=== PATIENT | male | born 1995 | race African-American/Black ===

== ENCOUNTER 2021-01-22 22:14 | Emergency (ER) | payer OTHER, SELFPAY ==
[2021-01-22 22:40] VITALS: BP 146/86; PULSE 65; RESP 18; TEMP 37.1; O2SAT 100; BMI 28.3
--- NOTE | 2021-01-22 23:03 | ED_ITS ---
HPI - Dental/Oral General Chief complaint: Dental/Oral Stated complaint: tooth pain Time Seen by Provider: 01/22/21 23:02 Source: patient Mode of arrival: ambulatory Limitations: no limitations History of Present Illness HPI Narrative: 25-year-old male came in for evaluation of tooth ache. Patient was seen by his dentist today had a filling of his left 1st molar tooth today, patient been having pain and swelling around the tooth, patient was not started on antibiotic or pain medication. Related Data Previous Rx's Medication Instructions Recorded amoxicillin 500 mg tablet 500 mg PO BID #14 tab 01/22/21 oxycodone-acetaminophen 5 mg-325 1 tab PO Q8H PRN #6 tab 01/22/21 mg tablet (Percocet) Allergies Allergy/AdvReac Type Severity Reaction Status Date / Time No Known Allergies Allergy Verified 01/22/21 22:46 Review of Systems Review of Systems: All other systems are reviewed and are negative Constitutional: Reports as per HPI and Reports no additional constitutional complaints Eyes: Reports as per HPI and Reports no additional eye complaints Reports system reviewed and no additional complaints, except as documented Cardiovascular: Reports as per HPI and Reports no additional cardiovascular complaints Respiratory: Reports as per HPI and Reports no additional respiratory complaints Gastrointestinal: Reports as per HPI and Reports no additional gastrointestinal complaints Genitourinary: Reports no additional female genitourinary complaints Musculoskeletal: Reports no additional musculoskeletal complaints Skin/Breast: Reports system reviewed and no additional complaints, except as docu Psychiatric: Reports no additional psychiatric complaints Endocrine: Reports no additional endocrine complaints Hematologic/Lymphatic: Reports no additional hematologic/lymphatic complaints Allergic/Immunologic: Reports no additional allergic/immunologic complaints Reports system reviewed and no additional complaints, except as documented and Reports Abnormal speech present Physical Exam Vital Signs: Vital Signs: Last Vital Signs Temp 98.7 F 01/22/21 22:40 Pulse 65 01/22/21 22:40 Resp 18 01/22/21 22:40 BP 146/86 H 01/22/21 22:40 Pulse Ox 100 01/22/21 22:40 Body Mass Index 28.3 Vital signs have been reviewed as appeared to be correct. Blood pressure normal. Heart rate normal. Respiration rate normal. Temperature normal. Oxygen saturation normal. Appearance: Alert. Oriented X3. No acute distress. Head: Normal external exam. Normocephalic. Atraumatic. No Holly signs noted. No raccoon eyes noted. Mouth and dental exam: Tenderness over the 1st lower molar tooth, no decay, no fluctuation or swelling around the tooth. Eyes: PERRLA. EOMI. Conjunctiva and sclera normal. Eyelids normal. ENT: TM's Normal. Pharynx normal. Uvula midline. Moist mucous membranes. No trismus noted. No drooling noted. No muffled voice noted. Neck: Normal inspection. Neck supple. FROM. No adenopathy. Thyroid Normal. No meningeal signs. No neck mass noted. CVS: Normal heart rate and rhythm. Heart sound normal. No murmurs noted. Pulses normal throughout. Respiratory: No respiratory distress. Painless inspiration. Breath sounds normal. No wheezes/rales/rhonchi noted. Chest nontender. No accessory muscle usage noted or decreased air movement noted. Abdomen: Soft and nontender. Bowel sounds normal in all 4 quadrants. No distention noted. No organomegaly noted. No visible injury noted. Back: No CVA tenderness. Full range of motion noted. Skin: Skin warm and dry. Normal skin color. Normal skin turgor. No rashes/ lesions/lacerations noted. Extremities: No lower extremity edema. Extremities exhibit normal range of motion. Extremities nontender. Neuro: Oriented X 3. Cranial nerve exam: II-XII are grossly intact No motor deficit. No sensory deficit. Reflexes normal. Course Course Course Narrative: Assessment and plan. 25-year-old male has a dental work today presented with pain, will start the patient on amoxicillin and pain medication. Discharge Plan Discharge Clinical Impression: Toothache Patient Disposition: Home, Self-Care Instructions: Toothache (ED) Prescriptions: New amoxicillin 500 mg tablet 500 mg PO BID Qty: 14 RF: 0 oxycodone-acetaminophen [Percocet] 5-325 mg tablet 1 tab PO Q8H PRN (Reason: pain) Qty: 6 RF: 0 Referrals: Physician,Unknown J [Primary Care Provider] - 2 days
[2021-01-22] MEDS: Amoxicillin 500 MG CAPSULE PO (23:26)
[2021-01-22] MEDS: Ibuprofen 600 MG TABLET PO (23:26)
== END 2021-01-22 23:40 | disposition home or self-care (01) ==
LOC: HO.ED 23:19
PROVIDERS: Emergency Provider Emergency Medicine
DX: K08.89 Other specified disorders of teeth and supporting structures (principal)
CPT/HCPCS: 99283; 99284

== ENCOUNTER 2021-01-24 17:37 | Emergency (ER) | payer OTHER, SELFPAY ==
--- NOTE | ~2021-01-24 | CT_ITS ---
EXAMINATION: CT SOFT TISSUE NECK WITH CONTRAST CLINICAL INFORMATION: Left submandibular jaw swelling. Question abdominal abscess. COMPARISON: None TECHNIQUE: Following the intravenous administration of 60 mL of Omnipaque 350 intravenous contrast, helical imaging was performed in the axial plane with generation of coronal and sagittal reformatted images. This CT examination was performed using dose optimization techniques as appropriate, variously including the following: *Automated exposure control *Adjustment of mA and/or kV according to patient size (this includes techniques or standardized protocols for targeted exams where dose is matched to indication/reason for exam; i.e. extremities or head) *Use of iterative reconstruction technique DLP: 694 mGy-cm FINDINGS: Prominent left upper cervical lymph nodes are presumably reactive. Laryngeal structures are normal. Parapharyngeal fat is maintained. Normal contrast opacification of the vasculature bilaterally. There is periapical lucency of tooth 13 with erosion through the buccal cortex of the left mandibular alveolar process with an adjacent 6 mm enhancing phlegmon. Also seen is periapical lucency adjacent to tooth 14. Bilateral ethmoid and maxillary sinus mucosal thickening. Globes and orbits are normal. There is asymmetric fat stranding of the subcutaneous fat in the left neck and submandibular region. Inferiorly this extends to the right of midline. The appearance suggests cellulitis. Thyroid gland is normal. Lung apices are normal. CT/CT soft tissue neck w con IMPRESSION: Periapical lucency of tooth 13 erosions through the buccal cortex of the left mandibular alveolar process with an adjacent 6 mm enhancing phlegmon. See resendez images. There is additional periapical lucency involving tooth 14. There is asymmetric fat stranding of the subcutaneous fat in the left neck and submandibular region, extending to the right of midline inferiorly, consistent with cellulitis. Maxillary and ethmoid sinus disease.
[2021-01-24 17:53] VITALS: BP 135/73; PULSE 70; RESP 18; TEMP 37.1; O2SAT 95; BMI 28.2
--- NOTE | 2021-01-24 18:21 | ED_ITS ---
HPI - General Adult General Chief complaint: Dental/Oral Stated complaint: Facial bump Time Seen by Provider: 01/24/21 17:59 Source: patient Mode of arrival: ambulatory Limitations: no limitations History of Present Illness HPI narrative: Patient presents to ED left lower jaw swelling started this morning. Patient was seen here for lower molar dental pain and was prescribed antibiotics. Patient only took 2 doses of antibiotics and this morning woke up with swelling of left lower jaw. Patient denies any drooling, chest pain, shortness of breath. Patient feels like slight left neck swelling with jaw swelling. Patient last seen dentist last month Related Data Previous Rx's Medication Instructions Recorded amoxicillin 500 mg tablet 500 mg PO BID #14 tab 01/22/21 oxycodone-acetaminophen 5 mg-325 1 tab PO Q8H PRN #6 tab 01/22/21 mg tablet (Percocet) doxycycline hyclate 100 mg tablet 100 mg PO BID 7 Days #14 tab 01/24/21 ketorolac 10 mg tablet 10 mg PO QID PRN 5 Days #20 tab 01/24/21 Allergies Allergy/AdvReac Type Severity Reaction Status Date / Time No Known Allergies Allergy Verified 01/24/21 17:53 Review of Systems Review of Systems: Yes all other systems are reviewed and are negative Constitutional: Constitutional: Reports as per HPI and Reports no additional constitutional complaints Eyes: Eyes: Reports as per HPI and Reports no additional eye complaints ENT: Reports system reviewed and no additional complaints, except as documented and Reports as per HPI Comments: Left-sided dental pain left lower jaw swelling. Cardiovascular: Cardiovascular: Reports as per HPI and Reports no additional cardiovascular complaints Respiratory: Respiratory: Reports as per HPI and Reports no additional respiratory complaints Gastrointestinal: Gastrointestinal: Reports as per HPI and Reports no additional gastrointestinal complaints Genitourinary: Genitourinary: Reports no additional male genitourinary complaints and Reports as per HPI Musculoskeletal: Musculoskeletal: Reports no additional musculoskeletal complaints and Reports as per HPI Neurologic: Reports system reviewed and no additional complaints, except as documented and Reports as per HPI Psychiatric: Psychiatric: Reports no additional psychiatric complaints and Reports as per HPI [facility] Social History Social History Advance Directives: No Advance Directives Information Provided: No Physical Exam Vital Signs: Vital Signs: Last Vital Signs Temp 98.7 F 01/24/21 17:53 Pulse 70 01/24/21 17:53 Resp 18 01/24/21 17:53 BP 135/73 01/24/21 17:53 Pulse Ox 95 01/24/21 17:53 Body Mass Index 28.2 Const: General: cooperative, healthy appearing, comfortable, no acute distress, well developed, alert, awake and Physically active Orientation/consciousness: patient oriented x3 HENMT: Head: Yes normal to inspection, Yes No palpable skull fracture present, Yes normocephalic, Yes atraumatic and No abrasion Head images: 1. Swelling and tenderness on palpation. Negative for palpable mass or fluctuance. Oral exam negative for obvious gum abscess or swelling or erythema. Positive for slight gum tenderness near painful tooth but negative for obvious gum masses to drain. Patient states left-sided neck feels swollen although there is no obvious swelling Eyes: General: appearance normal, both eyes and all related structures Neck: Neck: Yes normal visual inspection, Yes full ROM, Yes no lymphadenopathy, Yes no meningeal signs, Yes trachea midline, Yes supple, No anterior neck swelling and No tender Chest: Chest palpation & inspection: normal inspection of the chest and normal palpation of entire chest wall Resp: Effort & Inspection: normal respiratory effort and able to speak in complete sentences Auscultation: clear to auscultation bilaterally Cardio: Jugular venous distension: no JVD Heart sounds: S1 normal heart sound present and S2 normal heart sound present GI: Inspection: Yes normal to inspection and No abdominal wall ecchymosis Palpation (GI): Soft to palpation, not firm, nontender, no guarding and not rigid : General: No CVA tenderness and Yes no CVA tenderness Back/Spine/Pelvis: Back: no CVA tenderness, No CVA tenderness and No back tenderness Skin: General skin exam: no rashes or lesions noted and elasticity normal Neuro: General: patient oriented x3, gait normal, no meningeal signs and CN's II-XI intact bilaterally Cranial nerves: Yes CN's II-XII intact bilaterally Extrem: General: Yes normal to inspection and Yes full ROM Psych: Appearance: grossly normal, well kempt and not disheveled Course Course Course Narrative: No signs of obvious gum abscess but positive for left some mandibular swelling. Patient thinks his neck is swollen also will do CT scan to make sure there is no retropharyngeal lead with abscess to confirm that there is any drainable gum abscess although not obvious on inspection due to come not being swollen fluctuance or red. Reevaluation(s) Reevaluation #1: Labs are at baseline. Patient given clindamycin IV. Patient's CT scan negative for retropharyngeal abscess. Patient's CT scan shows facial/neck cellulitis. Negative for any dental abscess in lower molars lower molars. Tooth 13 and 14 May have some small collection under the tooth root and tooth will be need to be extracted. Patient explained all this and given copy of report of CT scans to give the dentist. Patient informed to continue taking amoxicillin. Patient educated warm compress on face will be charged with Toradol and said. Time: 23:26 Medical Decision Making MDM Narrative Medical decision making narrative: facial cellulitis Lab Data Result diagrams: 01/24/21 18:45 01/24/21 19:26 Labs: Lab Results 01/24/21 01/24/21 01/24/21 Range/Units 18:45 18:45 19:26 WBC 7.6 (4.8-10.8) X10*3/uL RBC 4.45 L (4.60-5.80) X10*6/uL Hgb 13.9 L (14.0-18.0) g/dl Hct 40.8 L (42.0-52.0) % MCV 91.7 (80.0-98.0) fL MCH 31.2 (27.0-33.0) pg MCHC 34.1 (31.0-36.0) g/dl RDW 13.2 (11.0-16.0) % Plt Count 208 (160-400) X10*3/uL MPV 10.6 (9.4-12.4) fL Immature Gran % (Auto) 0.3 (0.0-0.4) % Neut % (Auto) 57.4 (45-73) % Lymph % (Auto) 29.8 (20-40) % Ferry % (Auto) 10.7 (2-11) % Eos % (Auto) 1.5 (0-4) % Baso % (Auto) 0.3 (0-2) % Lymph # (Auto) 2.3 (1.2-4.9) X10*3/uL Ferry # (Auto) 0.8 (0.1-1.2) X10*3/uL Eos # (Auto) 0.1 (0.0-0.4) X10*3/uL Baso # (Auto) 0.0 (0.0-0.2) X10*3/uL Abs Immat Gran (auto) 0.02 (0.00-0.03) X10*3/uL Absolute Neuts (auto) 4.4 (2.0-8.3) x10*3/uL Absolute Nucleated RBC 0.000 (0.0-0.012) X10*3/uL Nucleated RBC % (auto) 0.0 (0.0-0.2) /100WBC Sodium 139 (135-145) mmol/L Potassium 3.7 (3.3-5.1) mmol/L Chloride 103 (96-108) mmol/L Carbon Dioxide 29 (22-29) mmol/L Anion Gap 11 L (12-20) BUN 9 (9-16) mg/dL Creatinine 0.82 (0.5-1.4) mg/dL Estim Creat Clear Calc 162.7 Estimated GFR > 60 Random Glucose 95 (60-115) mg/dL Lactic Acid 0.7 (0.5-2.0) mmol/L Calcium 9.1 (8.4-10.2) mg/dL Total Bilirubin 0.3 (0.0-1.0) mg/dL AST 45 H (5-37) U/L ALT 88 H (0-40) U/L Alkaline Phosphatase 97 (39-117) U/L Total Protein 7.1 (6.5-8.0) g/dL Albumin 4.4 (3.5-5.0) g/dL Discharge Plan Discharge Clinical Impression: Cellulitis of face, Dental abscess Patient Disposition: Home, Self-Care Instructions: Dental Abscess (ED), Cellulitis (ED) Additional Instructions: CT scan shows facial/neck cellulitis with superficial skin infection. CT scan also show upper molars 13 and 14 have erosions with small collection in root canal, but not drainable presently in this moment. Tooth 13 and 14 will need to be extracted by dentist. You will need to complete course of antibiotic. Recommend warm compress on left side of face 4 times a day for 15 minutes to help with swelling. Return to the ED immediately for neck swelling, weakness, dizziness, change in voice, drooling, shortness of breath, chest pain, extreme dental/facial pain, or any other concerning symptoms. Please follow up with PCP and dentitist. Prescriptions: New doxycycline hyclate 100 mg tablet 100 mg PO BID 7 Days Qty: 14 RF: 0 ketorolac 10 mg tablet 10 mg PO QID PRN (Reason: pain) 5 Days Qty: 20 RF: 0 No Action amoxicillin 500 mg tablet 500 mg PO BID Qty: 14 RF: 0 oxycodone-acetaminophen [Percocet] 5-325 mg tablet 1 tab PO Q8H PRN (Reason: pain) Qty: 6 RF: 0 Stand Alone Forms: Work/School Release Interventions: ED Discharge Assessment Last Done: 01/25/21 00:21 Discharge Date/Time: 01/24/21 23:37 Print Language: Malian
[2021-01-24 18:50] LABS: MANUAL DIFF FLAG NO
[2021-01-24 18:52] LABS: Basophils Percent Auto 0.3 % (0-2); Eosinophils Absolute Auto 0.1 X10*3/uL (0.0-0.4); Eosinophils Percent Auto 1.5 % (0-4); Hematocrit 40.8 % (42.0-52.0); Hemoglobin 13.9 g/dl (14.0-18.0); Imm Gran Abs Auto 0.02 X10*3/uL (0.00-0.03); Imm Gran Pct Auto 0.3 % (0.0-0.4); Lymphocytes Absolute Auto 2.3 X10*3/uL (1.2-4.9); Lymphocytes Percent Auto 29.8 % (20-40); Mean Corpuscular HGB Conc 34.1 g/dl (31.0-36.0); Mean Corpuscular Hemoglobin 31.2 pg (27.0-33.0); Mean Corpuscular Volume 91.7 fL (80.0-98.0); Mean Platelet Volume 10.6 fL (9.4-12.4); Monocytes Absolute Auto 0.8 X10*3/uL (0.1-1.2); Monocytes Percent Auto 10.7 % (2-11); Neutrophils Absolute Auto 4.4 x10*3/uL (2.0-8.3); Neutrophils Percent Auto 57.4 % (45-73); Platelet Count 208 X10*3/uL (160-400); Red Blood Count 4.45 X10*6/uL (4.60-5.80); Red Cell Distribution Width 13.2 % (11.0-16.0); White Blood Count 7.6 X10*3/uL (4.8-10.8)
[2021-01-24 19:04] LABS: Lactic Acid 0.7 mmol/L (0.5-2.0)
[2021-01-24 19:55] LABS: Alanine Aminotransferase 88 U/L (0-40); Albumin Level 4.4 g/dL (3.5-5.0); Alkaline Phosphatase 97 U/L (39-117); Anion Gap 11 (12-20); Aspartate Amino Transferase 45 U/L (5-37); Bilirubin Total 0.3 mg/dL (0.0-1.0); Blood Urea Nitrogen 9 mg/dL (9-16); Calcium 9.1 mg/dL (8.4-10.2); Carbon Dioxide 29 mmol/L (22-29); Chloride 103 mmol/L (96-108); Creatinine Clr Calc Pharmacy 162.7; Estimated Glomerular Filt Rate > 60; Glucose Random 95 mg/dL (60-115); Potassium 3.7 mmol/L (3.3-5.1); Sodium 139 mmol/L (135-145); Total Protein 7.1 g/dL (6.5-8.0)
[2021-01-24] MEDS: Clindamycin Phosphate/D5W 600 MG/50 ML PIGGYBACK 100 MG IV (20:11)
[2021-01-24] MEDS: 0.9 % Sodium Chloride 1,000 ML 999 ML IV (20:11)
[2021-01-24] MEDS: Ketorolac Tromethamine 15 MG/ML VIAL 30 MG IVPUSH (20:11)
[2021-01-24] MEDS: iohexoL 350 MG/ML 100 ML INFUS..BTL IV (21:22)
== END 2021-01-24 23:37 | disposition home or self-care (01) ==
PROVIDERS: Physician Assistant; Emergency Provider Internal Medicine
DX: L03.211 Cellulitis of face (principal); K04.7 Periapical abscess without sinus; K08.89 Other specified disorders of teeth and supporting structures
CPT/HCPCS: 36415; 70491; 80053; 83605; 85025; 87040; 96361; 96374; 96375; 99284; J1885; Q9967

== ENCOUNTER 2021-08-15 07:28 | Emergency (ER) | payer OTHER, SELFPAY ==
--- NOTE | ~2021-08-15 | XR_ITS ---
EXAMINATION: XR FOOT, LEFT CLINICAL INFORMATION: Evaluate for osteoarthritis between the 4th and 5th toes. COMPARISON: None TECHNIQUE: AP, lateral, and oblique views of the left foot. FINDINGS: No acute fracture or dislocation. No osseous erosion or periosteal reaction. No radiopaque foreign body. No joint space narrowing or marginal osteophytes. No abnormal soft tissue calcification. XR/XR foot LT min 3V IMPRESSION: No acute osseous abnormality.
[2021-08-15 07:37] VITALS: BP 129/75; PULSE 64; RESP 17; TEMP 36.8; O2SAT 98
[2021-08-15 08:33] VITALS: BMI 25.0
--- NOTE | 2021-08-15 08:37 | ED_ITS ---
HPI - General Adult General Chief complaint: Skin/Abscess/Foreign Body Stated complaint: pain l foot Time Seen by Provider: 08/15/21 08:37 Source: patient Mode of arrival: ambulatory Limitations: no limitations History of Present Illness HPI narrative: Patient is a 26 year old male presenting to the emergency department today with a wound in between his left 5th and 4th toes. Patient states that for a little while now he has been fighting a fungal infection in between his left 4th and 5th toes with OTC cream. Patient states that now the rest of his foot is painful and swollen. Patient denies any dizziness, lightheadedness, abdominal pain, nausea, vomiting, fever, chills, blurry vision, double vision, loss of vision, chest pain, difficulty breathing, shortness of breath, back pain, night sweats, pain with urination, increased urinary frequency, increased urinary urgency, blood in his urine or stool, syncope or a near syncopal episode, recent trauma or falls, bowel incontinence, bladder incontinence, bowel retention, bladder retention, or any other complaints at this time. Onset (ago): day(s) Location: lower extremity Radiation: non-radiation Severity: mild Severity scale (1-10): 3 Quality: dull Pain Consistency: constant Relieving factors: none Exacerbating factors: none Associated symptoms: denies other symptoms Treatments prior to arrival: none Related Data Previous Rx's Medication Instructions Recorded amoxicillin 500 mg tablet 500 mg PO BID #14 tab 01/22/21 oxycodone-acetaminophen 5 mg-325 1 tab PO Q8H PRN #6 tab 01/22/21 mg tablet (Percocet) doxycycline hyclate 100 mg tablet 100 mg PO BID 7 Days #14 tab 01/24/21 ketorolac 10 mg tablet 10 mg PO QID PRN 5 Days #20 tab 01/24/21 cephalexin 500 mg capsule 500 mg PO Q6H 7 Days #28 cap 08/15/21 fluconazole 150 mg tablet 150 mg PO Q3D #2 tab 08/15/21 (Diflucan) Allergies Allergy/AdvReac Type Severity Reaction Status Date / Time No Known Allergies Allergy Verified 01/24/21 17:53 Review of Systems Constitutional: Constitutional: Reports no additional constitutional complaints, Denies chills, Denies fever(s) and Denies night sweats Eyes: Eyes: Reports no additional eye complaints, Denies blurry vision, Denies change in vision, Denies diplopia, Denies eye discharge, Denies loss of vision and Denies eye pain ENT: Denies dizziness Cardiovascular: Cardiovascular: Reports no additional cardiovascular c omplaints, Denies chest pain, Denies lightheadedness, Denies Loss of Consciousness and Denies dyspnea Respiratory: Respiratory: Reports no additional respiratory complaints and Denies dyspnea Gastrointestinal: Gastrointestinal: Reports no additional gastrointestinal complaints, Denies abdominal pain, Denies melena, Denies hematochezia, Denies change in bowel habits and Denies change in stool character Genitourinary: Genitourinary: Reports no additional male genitourinary complaints, Denies hematuria, Denies oliguria, Denies difficulty urinating, Denies dysuria, Denies urinary frequency, Denies urinary hesitancy, Denies urinary incontinence and Denies urinary urgency Musculoskeletal: Musculoskeletal: Reports no additional musculoskeletal complaints, Denies numbness and Denies tingling Integumentary/Breasts: Comments: open wound between the 4th and 5th toes Neurologic: Denies dizziness, Denies loss of vision, Denies numbness and Denies tingling Psychiatric: Psychiatric: Reports no additional psychiatric complaints Endocrine: Endocrine: Reports no additional endocrine complaints Hematologic/Lymphatic: Hematologic/Lymphatic: Reports no additional hematologic/lymphatic complaints Allergic/Immunologic: Allergic/Immunologic: Reports no additional a llergic/immunologic complaints PMFSH Past Medical History Attestation statement: The following information was validated with the patient. Source: old records reviewed Social History Social History Advance Directives: No Advance Directives Information Provided: No Physical Exam ED Vital Signs: Vital Signs - 24 hr 08/15/21 07:37 Temperature 98.3 F Pulse Rate 64 Respiratory Rate 17 Blood Pressure 129/75 Pulse Oximetry 98 BMI result Body Mass Index 25.0 Const General: cooperative, no acute distress, alert and awake Nutritional Appearance: well nourished Orientation/consciousness: patient oriented x3 Limitations: no limitations HENMT Head: Yes normal to inspection and Yes atraumatic Ears: hearing grossly normal bilaterally and external ears normal General nose exam: Normal external nose present, no nasal discharge noted and no epistaxis Face and sinus: Yes normal facial exam, No abrasion and No laceration Mouth: Normal oral and palatal mucosa present, no drooling and no muffled voice Eyes General: appearance normal, both eyes and all related structures Periorbital: periorbital findings normal Eyelids: Yes eyelids normal Conjunctivae: conjunctivae normal Pupils: Equal, round and reactive pupils present EOM: EOMs intact bilaterally Neck Neck: Yes normal visual inspection, Yes full ROM and Yes no lymphadenopathy Chest Chest palpation & inspection: normal inspection of the chest Resp Effort & Inspection: normal respiratory effort and able to speak in complete sentences Auscultation: clear to auscultation bilaterally Cardio Rate: regular rate Rhythm: regular rhythm GI Inspection: Yes normal to inspection Skin Other: very small open wound in the web space between the 4th and 5th toes of the left foot Neuro General: patient oriented x3 and moves all extremities Cranial nerves: Yes Equal, round and reactive pupils present Cognition (Neuro): normal cognition Motor exam (neuro): 5/5 motor strength present throughout Sensory Exam: Normal double simultaneous stimulation for sensation Coordination: [id number] test normal Extrem General: Yes normal to inspection, Yes full ROM and Yes capillary refill normal Psych Appearance: grossly normal Mental Status: mental status grossly normal Affect: normal affect Attitude: cooperative Thought process: Normal thought process present Thought content: Normal thought content present Insight: Good insight present (Psych) Medical Decision Making MDM Narrative Medical decision making narrative: Patient is a 26 year old male presenting to the emergency department today with a wound to the web space between his left 4th and 5th toes. Patient's physical exam showed a small open wound between his left 4th and 5th toes. Patient's left foot x-ray showed no acute process. I explained my physical exam findings as well as all test results to the patient. I answered all questions asked by the patient. I stressed the importance of the patient taking his medication as prescribed. 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 I stressed the importance of the patient returning to the emergency department immediately if his symptoms were to worsen or if he were to develop any dizziness, shortness of breath, difficulty breathing, chest pain, blurry vision, loss of vision, nausea, vomiting, abdominal pain, fever, chills, back pain, or any other complaints. Patient verbalized agreement and understanding with this treatment plan and discharge. Differential Diagnosis Differential Diagnosis: cellulitis, skin infection, yeast infection Medical Records Medical records reviewed: Yes I reviewed the patient's medical records. Imaging Data Left foot x-ray: Attestation: I personally reviewed and interpreted this imaging study as follows: My impression: No acute process. Radiologist's impression: EXAMINATION: XR FOOT, LEFT CLINICAL INFORMATION: Evaluate for osteoarthritis between the 4th and 5th toes.? COMPARISON: None? TECHNIQUE: AP, lateral, and oblique views of the left foot. FINDINGS: No acute fracture or dislocation. No osseous erosion or periosteal reaction. No radiopaque foreign body. No joint space narrowing or marginal osteophytes. No abnormal soft tissue calcification.? XR/XR foot LT min 3V IMPRESSION: No acute osseous abnormality. Dictated By: Parvez Back MD Signed By: Electronically signed by Parvez Back MD 08/15/21 0912 Discharge Plan Discharge Clinical Impression: Cellulitis Patient Disposition: Home, Self-Care Instructions: Cellulitis (DC) Additional Instructions: Follow up with your primary care provider and the wound center. Return to the emergency department immediately if your symptoms worsen or if you develop any dizziness, shortness of breath, difficulty breathing, chest pain, blurry vision, loss of vision, nausea, vomiting, abdominal pain, fever, chills, back pain, or any other complaints. Prescriptions: New cephalexin 500 mg capsule 500 mg PO Q6H 7 Days Qty: 28 0RF fluconazole [Diflucan] 150 mg tablet 150 mg PO Q3D Qty: 2 0RF Rx Instructions: may repeat second dose 72 hrs after first dose if symptoms persist No Action amoxicillin 500 mg tablet 500 mg PO BID Qty: 14 0RF oxycodone-acetaminophen [Percocet] 5-325 mg tablet 1 tab PO Q8H PRN (Reason: pain) Qty: 6 0RF doxycycline hyclate 100 mg tablet 100 mg PO BID 7 Days Qty: 14 0RF ketorolac 10 mg tablet 10 mg PO QID PRN (Reason: pain) 5 Days Qty: 20 0RF Rx Instructions: patient received 30mg IV toradol in the ED. Referrals: [facility] [place] Family Medicine [Provider Group] (Call to discuss establishing with a primary care provider. If you already have one, please follow up with them. ) [facility] [place] Primary Care, Andrea [Provider Group] (Call to discuss establishing with a primary care provider. If you already have one, please follow up with them. ) [facility] [place] Primary CareZak [Provider Group] (Call to discuss establishing with a primary care provider. If you already have one, please follow up with them. ) [facility] [place] Wound Care Management [Provider Group] Stand Alone Forms: Work/School Release Print Language: Azerbaijani
== END 2021-08-15 09:59 | disposition home or self-care (01) ==
PROVIDERS: Emergency Provider Emergency Medicine
DX: L03.032 Cellulitis of left toe (principal); Z79.899 Other long term (current) drug therapy
CPT/HCPCS: 73630; 99283

== ENCOUNTER 2021-08-25 09:11 | Outpatient (RCR) | payer OTHER, SELFPAY | END 2021-11-01 14:07 | disposition home or self-care (01) | LOC: HO.WCC 09:11 | PROVIDERS: Visit Provider Surgery | DX: L97.522 Non-pressure chronic ulcer of other part of left foot with fat layer exposed (principal); L97.511 Non-pressure chronic ulcer of other part of right foot limited to breakdown of skin | CPT/HCPCS: 11042; 99212; 99213 ==

== ENCOUNTER 2021-12-01 16:11 | Emergency (ER) | payer OTHER, SELFPAY | END 2021-12-01 17:18 | disposition left against medical advice (07) | PROVIDERS: Emergency Provider Emergency Medicine Emergency Medical Services | DX: R51.9 Headache, unspecified (principal) ==

== ENCOUNTER 2022-04-27 12:57 | Emergency (ER) | payer OTHER, SELFPAY ==
--- NOTE | 2022-04-27 13:02 | ED.DENTAL ---
HPI - Dental/Oral General Chief complaint: Dental/Oral Stated complaint: mouth pain/swollen, headache Time Seen by Provider: 04/27/22 13:06 Source: patient Mode of arrival: ambulatory Limitations: no limitations History of Present Illness HPI Narrative: 26-year-old male here with left lower dental pain. Patient reports he was started on clindamycin yesterday by his dentist. He has taken 2 pills. He is taking leftover ibuprofen that he had at home every 6-8 hours as well as Tylenol with continued pain. Patient reports he also is using Orajel. He is here seeking additional pain medication. He has a follow-up appointment on the with a dentist have his tooth removed. No fevers or chills. No difficulty opening his mouth or swallowing or breathing. Related Data Previous Rx's Medication Instructions Recorded amoxicillin 500 mg tablet 500 mg PO BID #14 tabs 01/22/21 oxycodone-acetaminophen 5 mg-325 1 tab PO Q8H PRN pain #6 tabs 01/22/21 mg tablet (Percocet) doxycycline hyclate 100 mg tablet 100 mg PO BID 7 days #14 tabs 01/24/21 ketorolac 10 mg tablet 10 mg PO QID PRN pain 5 days #20 01/24/21 tabs cephalexin 500 mg capsule 500 mg PO Q6H 7 days #28 caps 08/15/21 fluconazole 150 mg tablet 150 mg PO Q3D 2 doses #2 tabs 08/15/21 (Diflucan) naproxen 500 mg tablet 500 mg PO BID PRN pain #30 tabs 04/27/22 Allergies Allergy/AdvReac Type Severity Reaction Status Date / Time No Known Allergies Allergy Verified 04/27/22 13:03 Review of Systems Review of Systems: Yes all other systems are reviewed and are negative Constitutional: Constitutional: Reports no additional constitutional complaints, Denies body ache(s), Denies chills, Denies fever(s), Denies headache(s) and Denies weakness Eyes: Eyes: Reports no additional eye complaints and Denies change in vision ENT: Reports system reviewed and no additional complaints, except as documented, Reports dental pain, Denies dizziness, Denies headache(s), Denies nasal congestion, Denies nasal discharge and Denies neck pain Cardiovascular: Cardiovascular: Reports no additional cardiovascular complaints, Denies chest pain, Denies leg edema and Denies dyspnea Respiratory: Respiratory: Reports no additional respiratory complaints, Denies cough and Denies dyspnea Gastrointestinal: Gastrointestinal: Reports no additional gastrointestinal complaints, Denies abdominal pain, Denies diarrhea, Denies nausea and Denies vomiting Genitourinary: Genitourinary: Denies urinary incontinence Musculoskeletal: Musculoskeletal: Reports no additional musculoskeletal complaints, Denies back pain, Denies arthralgias, Denies joint swelling, Denies neck pain, Denies numbness and Denies tingling Integumentary/Breasts: Skin/Breast: Reports system reviewed and no additional complaints, except as docu and Denies rash Neurologic: Reports system reviewed and no additional complaints, except as documented, Denies dizziness, Denies headache(s), Denies numbness, Denies tingling and Denies weakness PMFSH Past Medical History Attestation statement: The following information was validated with the patient. Source: old records reviewed and nursing notes reviewed Social History Social History Advance Directives: No Physical Exam Vital Signs: Vital Signs: Last Vital Signs Temp 98 F 04/27/22 13:03 Pulse 87 04/27/22 13:03 Resp 17 04/27/22 13:03 BP 127/89 04/27/22 13:03 Pulse Ox 98 04/27/22 13:03 O2 Del Method 04/27/22 13:03 BMI result Body Mass Index 24.4 Const: General: cooperative, healthy appearing, comfortable and no acute distress Orientation/consciousness: patient oriented x3 Limitations: no limitations HEENT: Other: No trismus Head: Yes normal to inspection Head images: 1. + mild soft tissue swelling Ears: hearing grossly normal bilaterally General nose exam: Normal external nose present Face and sinus: Yes normal facial exam Mouth: Normal oral and palatal mucosa present Teeth and gingiva: caries Teeth image: 1. Extensive caries. There is swelling, erythema, tenderness at the gum line. There is no palpable abscess. Throat: Yes posterior oropharynx normal, Yes tonsils normal and Yes uvula midline Eyes: General: appearance normal, both eyes and all related structures Pupils: Equal, round and reactive pupils present Neck: Neck: Yes normal visual inspection, Yes full ROM and Yes no lymphadenopathy Chest: Chest palpation & inspection: normal inspection of the chest Resp: Effort & Inspection: normal respiratory effort Skin: General skin exam: no rashes or lesions noted Neuro: General: patient oriented x3 and moves all extremities Cranial nerves: Yes Equal, round and reactive pupils present Cognition (Neuro): normal cognition Gait exam (Neuro): Normal gait present Extrem: General: Yes normal to inspection Course Course Course Narrative: This is rapid medical exam. Deferred additional HPI, ROS, PE to primary provider. Medications Administered Discontinued Medications Generic Name Dose Route Start Last Admin Trade Name Jorge PRN Reason Stop Dose Admin Ketorolac Tromethamine 30 mg 04/27/22 13:13 04/27/22 13:48 Ketorolac Tromethamine 30 Mg/Ml Vial IM 04/27/22 13:14 30 mg ONCE ONE Administration Medical Decision Making Medical Decision Making [facility] Narrative: 26-year-old male here with left lower dental pain and facial swelling for several days. Started on clindamycin 300 mg yesterday and has taken 2 doses. Taking motrin/tylenol with continued symptoms. Has follow-up in place with dentist. Requesting additional pain control at home. On exam there is mild swelling to the left facial area(lower dental) with extensive of dental caries. No palpable abscess. No trismus. Patient tolerating secretions with no difficulty. Patient given Toradol IM in the ER We discussed optimizing Tylenol at home, topical Orajel and adding naproxen. Differential Diagnosis Differential Diagnoses: The differential diagnosis associated with the presentation includes Low concern for ludwigs angina, dental abscess Prescription Management I considered prescription management with: Pain Medication Patient taking ibuprofen 800 mg that he had left over every 6 hours, tylenol 500mg every 4-6 hours Recommended increasing Tylenol to 1 g. Will add naproxen. We discussed proper use of Orajel, soft foods, lukewarm liquids Discharge Plan Discharge Clinical Impression: Toothache Patient Disposition: Home, Self-Care Additional Instructions: Continue Tylenol 1000 mg every 4 hours as needed for pain Continue topical oragel Saltwater gargles, soft foods, lukewarm foods Continue to follow-up with your scheduled appt with your dentist 05/11 Prescriptions: New naproxen 500 mg tablet 500 mg PO BID PRN (Reason: pain) Qty: 30 0RF No Action amoxicillin 500 mg tablet 500 mg PO BID Qty: 14 0RF oxycodone-acetaminophen [Percocet] 5-325 mg tablet 1 tab PO Q8H PRN (Reason: pain) Qty: 6 0RF cephalexin 500 mg capsule 500 mg PO Q6H 7 Days Qty: 28 0RF fluconazole [Diflucan] 150 mg tablet 150 mg PO Q3D Qty: 2 0RF Rx Instructions: may repeat second dose 72 hrs after first dose if symptoms persist doxycycline hyclate 100 mg tablet 100 mg PO BID 7 Days Qty: 14 0RF ketorolac 10 mg tablet 10 mg PO QID PRN (Reason: pain) 5 Days Qty: 20 0RF Rx Instructions: patient received 30mg IV toradol in the ED. Interventions: ED Discharge Assessment Last Done: 04/27/22 13:48 Discharge Date/Time: 04/27/22 13:48
[2022-04-27 13:03] VITALS: BP 127/89; PULSE 87; RESP 17; TEMP 36.6; O2SAT 98; BMI 24.4
[2022-04-27] MEDS: Ketorolac Tromethamine 30 MG/ML VIAL IM (13:48)
== END 2022-04-27 13:48 | disposition home or self-care (01) ==
PROVIDERS: Emergency Provider Emergency Medicine
DX: K08.89 Other specified disorders of teeth and supporting structures (principal); K02.9 Dental caries, unspecified
CPT/HCPCS: 90471; 96372; 99283; 99284; J1885

== ENCOUNTER 2023-02-03 15:24 | Emergency (ER) | payer OTHER, SELFPAY ==
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
[2023-02-03 16:13] VITALS: BP 126/84; PULSE 58; RESP 17; TEMP 36.8; O2SAT 96; BMI 24.8
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
[2023-02-03 18:47] VITALS: BP 135/82; PULSE 58; RESP 18; O2SAT 99
== END 2023-02-03 18:49 | disposition home or self-care (01) ==
PROVIDERS: Emergency Provider Emergency Medicine
DX: S09.90XA Unspecified injury of head, initial encounter (principal); R51.9 Headache, unspecified; R11.2 Nausea with vomiting, unspecified; R42 Dizziness and giddiness; Y04.2XXA Assault by strike against or bumped into by another person, initial encounter; Y93.9 Activity, unspecified; Y92.9 Unspecified place or not applicable; Y99.0 Civilian activity done for income or pay; Z79.899 Other long term (current) drug therapy
CPT/HCPCS: 70450; 99284